=== PATIENT | female | born 1990 | race Caucasian/White ===

== ENCOUNTER 2017-11-21 14:11 | Emergency (ER) | payer OTHER ==
[~2017-11-21] VITALS: Ht 152.4 cm; Wt 99.8 kg
[~2017-11-21 14:11] MED LIST: AZIT250 PO; CEPH500 PO; DOXY100 PO; HEARTBURN RELI150 M1 PO; HYDACE5 PO; IBUP800 PO; LIDO700A20 TOP; Naprosyn500 MG PO; Norco 5-325 Ta1 EACH PO; OXYACE5T PO; PANT40 PO; PROM25 PO; Pepcid40 MG PO; RXALBOI INH; SULTRIDS PO; Ultram50 MG PO; Valium5 MG PO; Zofran Odt8 MG SL
[2017-11-21] MEDS ORDERED: Keflex500 MG PO (14:44)
== END 2017-11-21 14:53 | disposition home or self-care (01) ==
LOC: ER 14:11
DX: H65.91 Unspecified nonsuppurative otitis media, right ear (principal); F17.210 Nicotine dependence, cigarettes, uncomplicated; Z88.0 Allergy status to penicillin
CPT/HCPCS: 99282

== ENCOUNTER 2018-09-22 12:38 | Emergency (ER) | payer OTHER ==
[~2018-09-22] VITALS: Ht 152.4 cm; Wt 104.3 kg
[~2018-09-22 12:38] MED LIST changes: +Keflex500 MG PO; +LEVSOD100 PO
[2018-09-22] MEDS ORDERED: IBUP600 PO (13:35)
[2018-09-22] MEDS ORDERED: Zithromax250 MG PO (13:35)
[2018-09-22] MEDS ORDERED: ONDA4ODT MM (14:03)
== END 2018-09-22 14:00 | disposition home or self-care (01) ==
LOC: ER 12:38
DX: H66.93 Otitis media, unspecified, bilateral (principal); Z88.0 Allergy status to penicillin; Z79.899 Other long term (current) drug therapy; F17.210 Nicotine dependence, cigarettes, uncomplicated
CPT/HCPCS: 96372; 99282-25; J1885

== ENCOUNTER → 2019-09-05 | Outpatient (CLI) | payer OTHER ==
[~2019-09-05] MED LIST changes: +IBUP600 PO; +ONDA4ODT MM; +Zithromax250 MG PO
[2019-09-07 02:10] LABS: CHLAMYDIA TRACHOMATIS, NAA Negative (Negative); NEISSERIA GONORRHOEAE, NAA Negative (Negative)
== END | disposition home or self-care (01) ==
LOC: LAB 09:30 → LAB SHORT 09:30
PROVIDERS: Obstetrics & Gynecology
DX: Z01.419 Encounter for gynecological examination (general) (routine) without abnormal findings (principal); Z11.3 Encounter for screening for infections with a predominantly sexual mode of transmission
CPT/HCPCS: 87491; 87591; G0123

== ENCOUNTER → 2020-02-10 | Outpatient (CLI) | payer OTHER | END | disposition home or self-care (01) | LOC: LAB SHORT 16:15 → LAB 16:15 | DX: Z36.85 Encounter for antenatal screening for Streptococcus B (principal) | CPT/HCPCS: 87081; 87653 ==

== ENCOUNTER 2020-03-06 19:05 | Inpatient (IN) | payer OTHER ==
[~2020-03-06] VITALS: Ht 154.9 cm; Wt 111.3 kg
[2020-03-06] MEDS ORDERED: [UNRECOGNIZED DRUG - OTHER] PO (20:06)
[2020-03-06 20:18] LABS: BASOPHILS ABSOLUTE AUTO 0.06 K/mm3 (0.00-0.23); BASOPHILS PERCENT AUTO 1 % (0-2); EOSINOPHILS ABSOLUTE AUTO 0.18 K/mm3 (0.00-0.68); EOSINOPHILS PERCENT AUTO 2 % (0-6); Hematocrit 36.7 % (33.0-51.0); Hemoglobin 12.3 g/dL (11.5-16.0); IMMATURE GRAN PERCENT AUTO 1 % (0-1); LYMPHOCYTES ABSOLUTE AUTO 1.84 K/mm3 (0.84-5.20); LYMPHOCYTES PERCENT AUTO 15 % (21-46); MONOCYTES ABSOLUTE AUTO 0.75 K/mm3 (0.16-1.47); MONOCYTES PERCENT AUTO 6 % (4-13); Mean Corpuscular HGB 29.1 pg (26.0-34.0); Mean Corpuscular HGB Conc 33.5 g/dL (31.5-36.5); Mean Corpuscular Volume 87 fL (80-100); Mean Platelet Volume 10.8 fL (9.1-12.4); NEUTROPHILS PERCENT AUTO 76 % (41-73); Platelet Count 313 K/mm3 (150-400); RDW Coefficient Variation 12.3 % (11.7-14.2); RDW Standard Deviation 39.3 fL (35.1-46.3); Red Blood Cell Count 4.22 M/mm3 (3.80-5.20); White Blood Cell Count 12.03 K/mm3 (4.00-11.30)
--- NOTE | 2020-03-07 16:52 | NUR ---
BED LINEN CHANGE
--- NOTE | 2020-03-07 17:22 | NUR ---
PT REFUSED FLU VACCINE.
[2020-03-08] MEDS ORDERED: IBUP800 PO (10:57)
== END 2020-03-08 11:49 | disposition home or self-care (01) | DRG 806 ==
LOC: OBS 19:05 → BC 19:06 → OBS 19:33 → BC 19:37
PROVIDERS: ADMIT Obstetrics & Gynecology
PROC: 10E0XZZ Delivery of Products of Conception, External Approach (ICD-10-PCS; principal; 2020-03-07)
PROC: 0UQG7ZZ Repair Vagina, Via Natural or Artificial Opening (ICD-10-PCS; 2020-03-07)
DX: O48.0 Post-term pregnancy (principal); O71.4 Obstetric high vaginal laceration alone; Z37.0 Single live birth; O13.4 Gestational [pregnancy-induced] hypertension without significant proteinuria, complicating childbirth; Z3A.40 40 weeks gestation of pregnancy; Z20.828 Contact with and (suspected) exposure to other viral communicable diseases; O99.214 Obesity complicating childbirth; E66.9 Obesity, unspecified; Z87.891 Personal history of nicotine dependence
CPT/HCPCS: 36415; 85025; 86850; 86900; 86901; J1885; J2001; J2210; J2590; J3010; J7120; U0004

== ENCOUNTER → 2020-04-17 | Outpatient (CLI) | payer OTHER ==
[~2020-04-17] MED LIST changes: +PRENATAL TABLE1 EAC2 PO; +[UNRECOGNIZED DRUG - OTHER] PO
[2020-04-17 15:53] LABS: BASOPHILS ABSOLUTE AUTO 0.13 K/mm3 (0.00-0.23); BASOPHILS PERCENT AUTO 2 % (0-2); EOSINOPHILS ABSOLUTE AUTO 1.31 K/mm3 (0.00-0.68); EOSINOPHILS PERCENT AUTO 17 % (0-6); Hematocrit 44.1 % (33.0-51.0); Hemoglobin 13.9 g/dL (11.5-16.0); IMMATURE GRAN ABSOLUTE AUTO 0.01 K/mm3 (0.00-0.10); IMMATURE GRAN PERCENT AUTO 0 % (0-1); LYMPHOCYTES PERCENT AUTO 38 % (21-46); MONOCYTES ABSOLUTE AUTO 0.52 K/mm3 (0.16-1.47); MONOCYTES PERCENT AUTO 7 % (4-13); Mean Corpuscular HGB 28.1 pg (26.0-34.0); Mean Corpuscular HGB Conc 31.5 g/dL (31.5-36.5); Mean Corpuscular Volume 89 fL (80-100); Mean Platelet Volume 10.5 fL (9.1-12.4); NEUTROPHILS PERCENT AUTO 37 % (41-73); Platelet Count 394 K/mm3 (150-400); RDW Coefficient Variation 12.5 % (11.7-14.2); RDW Standard Deviation 40.8 fL (35.1-46.3); Red Blood Cell Count 4.95 M/mm3 (3.80-5.20); White Blood Cell Count 7.67 K/mm3 (4.00-11.30)
== END ==
LOC: LAB 14:50
PROVIDERS: Obstetrics & Gynecology
DX: Z01.812 Encounter for preprocedural laboratory examination (principal)
CPT/HCPCS: 85025

== ENCOUNTER 2020-04-20 11:10 | Day surgery (SDC) | payer OTHER ==
[~2020-04-20] VITALS: Ht 152.4 cm; Wt 102.8 kg
[~2020-04-20 11:10] MED LIST changes: -PRENATAL TABLE1 EAC2 PO
[2020-04-20] MEDS ORDERED: PRENATAL TABLE1 EAC2 PO (11:28)
--- NOTE | 2020-04-20 12:00 | NUR ---
PT AMBULATORY FROM LOBBY TO [facility]. PT WEIGHED AND SENT TO RESTROOM FOR URINE SPECIMEN. PT PLACED IN GOWN, VSS. Surgical site prepped with 2% Chlorhexidine cloth wipe. History, Chart, Medications and Allergies reviewed before start of procedure. Lungs clear T/O to Auscultation. Patient confirms NPO status and agrees with scheduled surgery.
--- NOTE | 2020-04-20 15:40 | NUR ---
pt up to bathroom pt states void small amt of urin without problems pt alert and ready to dc home takeing crackers and juice well denies pain at this time
== END 2020-04-20 23:07 | disposition home or self-care (01) ==
LOC: ORSCMMR 11:10 → ORD 12:30 → ORSCMMR 12:30
PROVIDERS: Obstetrics & Gynecology
PROC: 0UT74ZZ Resection of Bilateral Fallopian Tubes, Percutaneous Endoscopic Approach (ICD-10-PCS; principal; 2020-04-20 12:30)
DX: Z30.2 Encounter for sterilization (principal); F17.210 Nicotine dependence, cigarettes, uncomplicated; E03.9 Hypothyroidism, unspecified; E66.01 Morbid (severe) obesity due to excess calories; Z68.41 Body mass index [BMI] 40.0-44.9, adult
CPT/HCPCS: 88302; J1100; J1885; J2250; J2405; J2704; J2710; J3010; J7120